=== PATIENT | male | born 2000 | race Caucasian/White ===

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

== ENCOUNTER 2020-01-07 01:43 | Emergency (ER) | payer OTHER ==
[~2020-01-07] VITALS: Ht 177.8 cm; Wt 77.0 kg
--- NOTE | 2020-01-07 02:30 | NUR ---
REPORT FROM SARAN ROJAS. PT TO CT. FRIEND AT BEDSIDE.
--- NOTE | 2020-01-07 03:44 | NUR ---
PT RESTING. VSS. WAITING FOR RESULTS.
--- NOTE | 2020-01-07 04:57 | NUR ---
PT SLEEPING IN NAD. EVEN RISE AND FALL OF CHEST OBSERVED. VSS. CALL LIGHT IN REACH
--- NOTE | 2020-01-07 06:07 | NUR ---
PT RESTING. PT AROUSES SLIGHTLY TO VOICE AND GOES BACK TO SLEEP. VSS. CALL LIGHT IN REACH
[2020-01-07 06:10] VITALS: BP 114/68
--- NOTE | 2020-01-07 07:17 | NUR ---
PT AROUSED TO NAME. DOESNT REMEMBER EVENTS. PT TOLD OF VOMIT ALL OVER CLOTHS AND HE HIT HIS HEAD ON A DESK. FSBS CHECKED. DR MOHR NOTIFIED.
== END 2020-01-07 08:08 | disposition home or self-care (01) ==
LOC: ED 02:45
DX: S09.90XA Unspecified injury of head, initial encounter (principal); F10.120 Alcohol abuse with intoxication, uncomplicated; R09.02 Hypoxemia; W01.0XXA Fall on same level from slipping, tripping and stumbling without subsequent striking against object, initial encounter; Y93.89 Activity, other specified; Y92.009 Unspecified place in unspecified non-institutional (private) residence as the place of occurrence of the external cause; Y99.8 Other external cause status; Y90.9 Presence of alcohol in blood, level not specified
CPT/HCPCS: 36415; 70450; 71045; 72125; 80307; 82962; 99285